=== PATIENT | male | born 1975 | race Two or more races ===

== ENCOUNTER 2019-01-20 13:55 | Emergency (ER) | payer OTHER ==
[2019-01-20 14:08] VITALS: BP 150/94
[2019-01-20] MEDS ORDERED: ACETAMINOPHEN 500 MG TAB PO ONE (14:15)
--- NOTE | 2019-01-20 14:17 | EDPHY ---
H & P Time Seen by Provider: 01/20/19 14:00 HPI/ROS: CHIEF COMPLAINT: Right thumb pain History by patient HISTORY OF PRESENT ILLNESS: 43-year-old man who is right-hand dominant presents complaining of pain in his right thumb at the PIP joint after he smashed between the handle of a sledgehammer that he was using in a PIck ax that was below him. He complains of mild pain and swelling. He has not taken anything for this. He says feels slightly numb and tingly. Only the radial side of the joint hurts. REVIEW OF SYSTEMS: As in HPI, and all other systems reviewed and are negative Smoking Status: Heavy smoker Physical Exam: General Appearance: Alert and no distress. Head: Normocephalic, atraumatic Eyes: Pupils equal and round no injection. Extraocular movements are intact. Musculoskeletal: Neck is supple and nontender. Extremities: Right hand minimal swelling right thumb compared to left, positive tenderness on radial side of PIP joint, full range of motion of MCP and PIP joint against resistance without pain in flexion and extension, distal cap refills less than 2 sec, distal sensations intact,. Skin: No rashes or lesions except as described above. Constitutional: Initial Vital Signs Temperature (C) 36.8 C 01/20/19 14:02 Heart Rate 91 01/20/19 14:02 Respiratory Rate 16 01/20/19 14:02 Blood Pressure 150/94 H 01/20/19 14:02 O2 Sat (%) 97 01/20/19 14:02 O2 Delivery Mode Room Air Allergies/Adverse Reactions: No Known Allergies Allergy (Verified 01/20/19 14:01) Home Medications: Medication Instructions Recorded Cholchicine 01/20/19 Clopidogrel Bisulfate [Plavix] 01/20/19 Lisinopril 01/20/19 MDM/Departure - MDM Imaging Results: Imaging Impressions Finger X-Ray 01/20/19 14:10 Impression: Russell soft tissue swelling. No fracture identified. Imaging: I viewed and interpreted images myself Medications Given: Discontinued Medications Acetaminophen (Tylenol) 1,000 mg PO EDNOW ONE Stop: 01/20/19 14:16 Last Admin: 01/20/19 14:18 Dose: 1,000 mg ED Course/Re-evaluation: [age] old man presents with injury to his right thumb. At x-ray shows no evidence of fracture. He is given Tylenol for pain in the ER. Discussed home care. Patient was discharged in stable condition. - Depart Disposition: Home, Routine, Self-Care Clinical Impression: Contusion Qualifiers: Encounter type: initial encounter Contusion area: finger Finger: thumb Damage to nail status: without damage Laterality: right Qualified Code(s): S60.011A - Contusion of right thumb without damage to nail, initial encounter Condition: Good Instructions: Contusion in Adults (ED) Additional Instructions: You were seen by Dr. Kate Murillo today. You may take acetaminophen (Tylenol) for pain. I recommend avoiding ibuprofen since your on Plavix. He may continue to ice her finger. He may return to work tomorrow. Return for any worsening or new concerns. Stand Alone Forms: Work Excuse Referrals: SOFIA BURKS [Other] - As per Instructions
== END 2019-01-20 14:43 | disposition home or self-care (01) ==
LOC: CED 13:55
DX: S60.011A Contusion of right thumb without damage to nail, initial encounter (principal); W27.0XXA Contact with workbench tool, initial encounter; F17.200 Nicotine dependence, unspecified, uncomplicated
CPT/HCPCS: 73140-PO; 99283-ER